=== PATIENT | female | born 1990 | race Caucasian/White ===

== ENCOUNTER 2017-02-14 01:17 | Inpatient (IN) | payer BC ==
[2017-02-14] MEDS ORDERED: Ondansetron INJ* 2 MG/ML VIAL IV ONE ×2 (01:43→05:30)
[2017-02-14] MEDS ORDERED: Ketorolac INJ* 30 MG/ML 1 ML VIAL IV ONE (01:43)
[2017-02-14] MEDS ORDERED: Morphine INJ* 4 MG/ML 1 ML SYRINGE IV ONE ×4 (01:43→09:13)
[2017-02-14 02:32] LABS: Hematocrit 41 % (35-47); Hemoglobin 13.4 g/dl (12.0-16.0); Mean Corpuscular HGB Conc 33 g/dl (31-36); Mean Corpuscular Hemoglobin 29 pg (27-31); Mean Corpuscular Volume 87 fL (80-97); Mean Platelet Volume 9 um3 (7.4-10.4); Red Blood Count 4.66 10^6/ul (4.0-5.4); Red Cell Distribution Width 13 % (10.5-15); White Blood Count 18.8 10^3/ul (3.5-10.8)
[2017-02-14 02:37] LABS: Add Diff/Slide Review? Slide Review Added; Comments Flag Yes
[2017-02-14] MEDS ORDERED: NS 0.9% 1000 ML* 3,000 ML IV ONE (02:39)
[2017-02-14 02:42] LABS: ALT 12 U/L (7-52); AST 17 U/L (13-39); Albumin 4.4 g/dL (3.2-5.2); Alkaline Phosphatase 44 U/L (34-104); Anion Gap 12 mmol/L (2-11); BUN/Creatinine Ratio 19.3 (8-20); Blood Urea Nitrogen 16 mg/dL (6-24); C Reactive Protein 3.99 mg/L (< 5.00); CO2 Carbon Dioxide 20 mmol/L (22-32); Calcium 9.6 mg/dL (8.6-10.3); Chloride 103 mmol/L (101-111); EGFR African American 106.1 (>60); EGFR Non-African American 82.5 (>60); Globulin 2.9 g/dL (2-4); Glucose 111 mg/dL (70-100); Lipase 12 U/L (11.0-82.0); Potassium 3.1 mmol/L (3.5-5.0); Sodium 135 mmol/L (133-145); Total Protein 7.3 g/dL (6.4-8.9)
[2017-02-14] MEDS ORDERED: Tamsulosin CAP* 0.4 MG PO ONE (03:10)
[2017-02-14] MEDS ORDERED: HYDROmorphone* 1 MG/ML 1 ML SYR IV ONE (05:25)
[2017-02-14 05:30] LABS: Urine Bacteria 1+ (Absent); Urine Bilirubin Negative (Negative); Urine Glucose Negative (Negative); Urine Nitrite Negative (Negative)
[2017-02-14] MEDS ORDERED: Ondansetron INJ* 2 MG/ML VIAL ONE ×2 (05:32→11:56)
[2017-02-14] MEDS ORDERED: NS 0.9% 1000 ML* 1,000 ML IV SCH (06:15)
[2017-02-14] MEDS ORDERED: cefTRIAXone(*) 1 GM in NS 0.9% 50 ML* 50 ML IVPB ONE (06:24)
--- NOTE | 2017-02-14 06:27 | ED ---
Kesha Ortgea Alok, scribed for Asif Olguin MD on 02/14/17 at 0148 . Abdominal Pain/Female - HPI Summary HPI Summary: 26 y/o female presents to the ED with abd pain in her right flank radiating to her RLQ. This pain began at 2345 and is accompanied by N/V. Pt is on an IUD and denies any chance of . Pt states NKDA. - History of Current Complaint Chief Complaint: EDAbdPain Stated Complaint: ABD/BACK PAIN/N/V Time Seen by Provider: 02/14/17 01:27 Hx Obtained From: Patient ?: No Onset/Duration: Gradual Onset, Lasting Hours, Still Present Timing: Constant Severity Initially: Moderate Severity Currently: Moderate Pain Intensity: 8 Pain Scale Used: 0-10 Numeric Location: Flank - Right side Radiates: Yes Radiates to: RLQ Aggravating Factor(s): Nothing Alleviating Factor(s): Nothing Associated Signs and Symptoms: Positive: Nausea, Vomiting Allergies/Adverse Reactions: Allergies Allergy/AdvReac Type Severity Reaction Status Date / Time No Known Allergies Allergy Verified 02/14/17 01:23 PMH/Surg Hx/FS Hx/Imm Hx Cardiovascular History: Reports: Hx Supraventricular Ventricular Tachycardia Infectious Disease History: No Infectious Disease History: Denies: Traveled Outside the [place] in Last 30 Days - Family History Known Family History: Positive: Other - No - Kidney Stones - Social History Occupation: Employed Full-time Lives: With Family - Friend Male Review of Systems Negative: Fever Positive: Abdominal Pain - RLQ, Vomiting, Nausea Positive: flank pain - Right All Other Systems Reviewed And Are Negative: Yes Physical Exam Triage Information Reviewed: Yes Vital Signs On Initial Exam: Initial Vitals Temp Pulse Resp BP Pulse Ox 98.3 F 79 15 143/78 100 02/14/17 01:18 02/14/17 01:18 02/14/17 01:18 02/14/17 01:18 02/14/17 01:18 Vital Signs Reviewed: Yes Appearance: Positive: Well-Appearing, Pain Distress - Moderate Skin: Positive: Warm, Skin Color Reflects Adequate Perfusion, Dry Head/Face: Positive: Normal Head/Face Inspection Eyes: Positive: EOMI, ANNE ENT: Positive: Normal ENT inspection Neck: Positive: Supple, Nontender Respiratory/Lung Sounds: Positive: Clear to Auscultation, Breath Sounds Present Cardiovascular: Positive: RRR Abdomen Description: Positive: Soft, Other: - Right Side Abdominal Tenderness Bowel Sounds: Positive: Present Musculoskeletal: Positive: Normal, Strength/ROM Intact Neurological: Positive: Normal, Sensory/Motor Intact, Alert, Oriented to Person Place, Time Psychiatric: Positive: Affect/Mood Appropriate Diagnostics - Vital Signs Vital Signs Temp Pulse Resp BP Pulse Ox 02/14/17 01:18 98.3 F 79 15 143/78 100 - Laboratory Lab Results: Lab Results 02/14/17 02/14/17 02/14/17 Range/Units 02:05 02:05 02:05 WBC 18.8 H (3.5-10.8) 10^3/ul RBC 4.66 (4.0-5.4) 10^6/ul Hgb 13.4 (12.0-16.0) g/dl Hct 41 (35-47) % MCV 87 (80-97) fL MCH 29 (27-31) pg MCHC 33 (31-36) g/dl RDW 13 (10.5-15) % Plt Count 204 (150-450) 10^3/ul MPV 9 (7.4-10.4) um3 Neut % (Auto) 85.9 H (38-83) % Lymph % (Auto) 6.8 L (25-47) % [place] % (Auto) 5.7 (1-9) % Eos % (Auto) 0.7 (0-6) % Baso % (Auto) 0.9 (0-2) % Absolute Neuts (auto) 16.1 H (1.5-7.7) 10^3/ul Absolute Lymphs (auto) 1.3 (1.0-4.8) 10^3/ul Absolute Monos (auto) 1.1 H (0-0.8) 10^3/ul Absolute Eos (auto) 0.1 (0-0.6) 10^3/ul Absolute Basos (auto) 0.2 (0-0.2) 10^3/ul Absolute Nucleated RBC 0 10^3/ul Nucleated RBC % 0 INR (Anticoag Therapy) 0.96 (0.89-1.11) APTT 29.7 (26.0-36.3) seconds Sodium 135 (133-145) mmol/L Potassium 3.1 L (3.5-5.0) mmol/L Chloride 103 (101-111) mmol/L Carbon Dioxide 20 L (22-32) mmol/L Anion Gap 12 H (2-11) mmol/L BUN 16 (6-24) mg/dL Creatinine 0.83 (0.51-0.95) mg/dL Est GFR ( Amer) 106.1 (>60) Est GFR (Non-Af Amer) 82.5 (>60) BUN/Creatinine Ratio 19.3 (8-20) Glucose 111 H (70-100) mg/dL Lactic Acid (0.5-2.0) mmol/L Calcium 9.6 (8.6-10.3) mg/dL Total Bilirubin 0.50 (0.2-1.0) mg/dL AST 17 (13-39) U/L ALT 12 (7-52) U/L Alkaline Phosphatase 44 (34-104) U/L C-Reactive Protein 3.99 (< 5.00) mg/L Total Protein 7.3 (6.4-8.9) g/dL Albumin 4.4 (3.2-5.2) g/dL Globulin 2.9 (2-4) g/dL Albumin/Globulin Ratio 1.5 (1-3) Lipase 12 (11.0-82.0) U/L Beta HCG, Quant < 0.60 mIU/mL Urine Color Urine Appearance Urine pH (5-9) Ur Specific [place] (1.010-1.030) Urine Protein (Negative) Urine Ketones (Negative) Urine Blood (Negative) Urine Nitrate (Negative) Urine Bilirubin (Negative) Urine Urobilinogen (Negative) Ur Leukocyte Esterase (Negative) Urine WBC (Auto) (Absent) Urine RBC (Auto) (Absent) Ur Squamous Epith Cells (Absent) Urine Bacteria (Absent) Urine Glucose (Negative) 02/14/17 02/14/17 Range/Units 02:05 04:44 WBC (3.5-10.8) 10^3/ul RBC (4.0-5.4) 10^6/ul Hgb (12.0-16.0) g/dl Hct (35-47) % MCV (80-97) fL MCH (27-31) pg MCHC (31-36) g/dl RDW (10.5-15) % Plt Count (150-450) 10^3/ul MPV (7.4-10.4) um3 Neut % (Auto) (38-83) % Lymph % (Auto) (25-47) % [place] % (Auto) (1-9) % Eos % (Auto) (0-6) % Baso % (Auto) (0-2) % Absolute Neuts (auto) (1.5-7.7) 10^3/ul Absolute Lymphs (auto) (1.0-4.8) 10^3/ul Absolute Monos (auto) (0-0.8) 10^3/ul Absolute Eos (auto) (0-0.6) 10^3/ul Absolute Basos (auto) (0-0.2) 10^3/ul Absolute Nucleated RBC 10^3/ul Nucleated RBC % INR (Anticoag Therapy) (0.89-1.11) APTT (26.0-36.3) seconds Sodium (133-145) mmol/L Potassium (3.5-5.0) mmol/L Chloride (101-111) mmol/L Carbon Dioxide (22-32) mmol/L Anion Gap (2-11) mmol/L BUN (6-24) mg/dL Creatinine (0.51-0.95) mg/dL Est GFR ( Amer) (>60) Est GFR (Non-Af Amer) (>60) BUN/Creatinine Ratio (8-20) Glucose (70-100) mg/dL Lactic Acid 1.9 (0.5-2.0) mmol/L Calcium (8.6-10.3) mg/dL Total Bilirubin (0.2-1.0) mg/dL AST (13-39) U/L ALT (7-52) U/L Alkaline Phosphatase (34-104) U/L C-Reactive Protein (< 5.00) mg/L Total Protein (6.4-8.9) g/dL Albumin (3.2-5.2) g/dL Globulin (2-4) g/dL Albumin/Globulin Ratio (1-3) Lipase (11.0-82.0) U/L Beta HCG, Quant mIU/mL Urine Color Yellow Urine Appearance Cloudy Urine pH 5.0 (5-9) Ur Specific [place] 1.030 (1.010-1.030) Urine Protein Negative (Negative) Urine Ketones 2+ H (Negative) Urine Blood 1+ H (Negative) Urine Nitrate Negative (Negative) Urine Bilirubin Negative (Negative) Urine Urobilinogen Negative (Negative) Ur Leukocyte Esterase 2+ H (Negative) Urine WBC (Auto) 3+(>20/hpf) H (Absent) Urine RBC (Auto) 3+(>10/hpf) H (Absent) Ur Squamous Epith Cells Present H (Absent) Urine Bacteria 1+ H (Absent) Urine Glucose Negative (Negative) Result Diagrams: 02/14/17 02:05 02/14/17 02:05 Lab Statement: Any lab studies that have been ordered have been reviewed, and results considered in the medical decision making process. - CT Abd/Pel CT CT Interpretation: Positive (See Comments) - IMPRESSION: MILD RIGHT HYDRONEPHROISI SECONDARY TO A 6 MM PROXIMAL TO MID RIGHT URETERAL STONE. CT Interpretation Completed By: Radiologist Re-Evaluation - Re-Evaluation First Eval Re-Evaluation Time: 03:06 Second Eval Re-Evaluation Time: 05:23 Abdominal Pain Fem Course/Dx - Course Course Of Treatment: PAIN RETURNS AFTER 3 IV DOSES OF THE PAIN MEDICATIONS. DISCUSSED WITH DR PETERSON. HE WILL SEE THE PATIENT IN THE ED. ADMIT STABLE. - Diagnoses Provider Diagnoses: Kidney stone - Provider Notifications Discussed Care Of Patient With: Dr. Peterson (Urology) @ 0914 Discharge - Discharge Plan Condition: Stable Disposition: ADMITTED TO [facility] Referrals: Omar Contreras MD [Primary Care Provider] - The documentation as recorded by the Kesha may Alok accurately reflects the service I personally performed and the decisions made by , Asif Olguin MD.
--- NOTE | 2017-02-14 07:52 | RAD ---
INDICATION: Right flank abdominal pain. COMPARISON: There are no prior studies available for comparison. TECHNIQUE: A CT scan of the abdomen and pelvis was performed without intravenous or oral contrast. Contiguous axial sections were obtained from the lung bases through the symphysis pubis. Images were reconstructed in the coronal and sagittal planes. FINDINGS: The lung bases are clear. No pleural effusion is present. The liver and spleen are within normal limits in size without significant focal abnormality on this noncontrast study. No calcified gallstones are seen. The pancreas appears to be within normal limits in size. The adrenal glands appear within normal limits. There is mild enlargement of the right kidney with mild perinephric stranding. There is dilatation of the renal calyces and pelvis to the level of a 3 x 6 mm calculus which is causing [id number] hydronephrosis. No renal or bladder calculi are seen. The aorta is normal in caliber without significant calcific plaque. No significant enlarged retroperitoneal lymph nodes are seen. The stomach, small and large bowel appear nondistended. The appendix is within normal limits. There is a moderate amount of retained stool. There is no evidence for diverticulitis or colitis. The uterus is anteverted and normal in size. There is a T-shaped IUD present. There is a trace amount of free intraperitoneal fluid in the cul-de-sac. No free intraperitoneal air is seen. No significant focal osseous abnormality is seen. IMPRESSION: MILD TO MODERATE RIGHT HYDRONEPHROSIS SECONDARY TO A 3 X 6 MM CALCULUS IN THE PROXIMAL RIGHT URETER.
[2017-02-14 09:03] LABS: Urine Bacteria Absent (Absent); Urine Bilirubin Negative (Negative); Urine Glucose Negative (Negative); Urine Nitrite Negative (Negative)
[2017-02-14] MEDS ORDERED: Morphine INJ* 4 MG/ML 1 ML SYRINGE ONE (09:05)
[2017-02-14] MEDS ORDERED: Acetaminophen TAB* 325 MG ONE (09:06)
[2017-02-14] MEDS ORDERED: Acetaminophen TAB* 325 MG PO ONE (09:06)
[2017-02-14] MEDS ORDERED: Midazolam* 1 MG/ML 5 ML VIAL (5 MG) ONE (11:24)
[2017-02-14] MEDS ORDERED: fentaNYL* 50 MCG/ML 2 ML VIAL (100 MCG VIAL) ONE (11:24)
[2017-02-14] MEDS ORDERED: Lidocaine 2% PF * 5 ML VIAL ONE (11:56)
[2017-02-14] MEDS ORDERED: Propofol* 10 MG/ML 20 ML BTL IV PUSH ONE (11:56)
[2017-02-14] MEDS ORDERED: DiMENhydriNATE IV* 50 MG/ML VIAL ONE (11:56)
[2017-02-14] MEDS ORDERED: Dexamethasone IV* 4 MG/ML 1 ML (4 MG) ONE (11:56)
--- NOTE | 2017-02-14 12:27 | RAD ---
INDICATION: Right retrograde examination with stent insertion COMPARISON: None FINDINGS: 9 seconds of fluoroscopy were provided for the urology department. Fluoroscopic spot imaging of the abdomen were obtained for operative control and show placement of a right ureteral stent in expected position. Incidental note is made of an IUD . CPT II Codes: 6045F (fluoro time doc)
[2017-02-14] MEDS ORDERED: DiMENhydriNATE IV* 50 MG/ML VIAL IV PUSH PRN (12:51)
[2017-02-14] MEDS ORDERED: HYDROmorphone* 1 MG/ML 1 ML SYR IV PRN (12:51)
[2017-02-14] MEDS ORDERED: Acetaminophen TAB* 325 MG PO PRN ×2 (12:51→15:06)
[2017-02-14] MEDS ORDERED: oxyCODONE/Acetamin 5/325 MG* TAB ONE (13:43)
[2017-02-14] MEDS: oxyCODONE/Acetamin 5/325 MG* TAB PO PRN (13:45)
[2017-02-14] MEDS: KCL 10 MEQ/50 ML IVPREMIX* 10 MEQ/50 ML BAG IV SCH ×2 (16:04→18:17)
--- NOTE | 2017-02-14 17:13 | HP ---
HOSPITAL MEDICINE AND PHYSICAL: DATE OF ADMISSION: 02/14/17 PRIMARY CARE PHYSICIAN: Dr. Contreras. ATTENDING PHYSICIAN: Adri Machado MD *(dictation provided by Joan Ibarra NP) CHIEF COMPLAINT: Right flank pain. HISTORY OF PRESENT ILLNESS: Ms. Rojas is a 26-year-old female with no past medical history who presented to the ER in the supervisor general hours of 02/14/17 with concern for right flank pain. Ms. Rojas states that she was in her normal state of health last night when she went to bed. In the middle of the night she had the sudden onset of right low back pain associated with nausea and vomiting. She had no fever. She initially thought that perhaps she had a musculoskeletal injury, but did not feel better after getting up and stretching and actually continued to feel worse. She, therefore, presented to the emergency room. She denies any other symptoms recently including cough, chest pain, shortness of breath. In the emergency room, Ms. Rojas had a white blood cell count elevated to 18.8. She had mild hypokalemia, potassium 3.1. Her urine show 2+ leuk esterase with 1+ bacteria. She went on to have a CT of abdomen and pelvis, which confirmed a right- sided calculus in the ureter measuring 3 x 6 mm causing mild- to-moderate right hydronephrosis. Ms. Rojas was taken to the OR by Dr. Kim for stent placement. Per the report verbally, Ms. Rojas had significantly cloudy urine with pus. She has had a fever up to 105 since presenting to the hospital, but she is now afebrile. PAST MEDICAL HISTORY: None. MEDICATIONS: None. ALLERGIES: None. FAMILY HISTORY: The patient reports that her mother is alive and has hyperthyroidism. Her paternal grandfather had colon cancer and has . Paternal grandmother had COPD and has . Her maternal grandmother is alive, but has had a history of heart attack. She does not know about her maternal grandfather. SOCIAL HISTORY: The patient denies any alcohol, tobacco, or drug use. She states that her healthcare proxy will be her sister, Merlene. REVIEW OF SYSTEMS: A 14-point review of systems was completed with Ms. Rojas and all those not mentioned above were negative. PHYSICAL EXAMINATION GENERAL: Ms. Rojas is sitting up in the PACU. She is in no acute distress. VITAL SIGNS: Currently temperature 97.8, again temperature was as high as 105.2. Heart rate 108, respiratory rate 20, O2 saturation 94% on 2 L nasal cannula, blood pressure 103/56. LUNGS: Clear to auscultation bilaterally with no accessory muscle use and good aeration. HEART: S1 and S2. No murmur, rub, or gallop. Regular. ABDOMEN: Soft and nontender with bowel sounds positive x4. EXTREMITIES: No cyanosis or edema. NEURO: She is alert and oriented x3. She moves all extremities equally. There is no facial asymmetry or focal weakness. Extraocular movements are intact. SKIN: Intact. DIAGNOSTIC STUDIES/LAB DATA: WBC 18.8, hemoglobin 13.4, hematocrit 41, platelet count 204. INR is 0.96. Sodium 135, potassium 3.1, chloride 103, serum bicarbonate 20, BUN 16, creatinine 0.83, glucose 111. Lactic acid 1.9, repeat check after her stent placement shows lactic acid of 1.5. Her beta-hCG is less than 0.60. CRP is 3.99. Again, urine showed 2+ leuk esterase and 1+ bacteria. Abdominal pelvis CT was as per above. ASSESSMENT AND PLAN: Ms. Rojas is a 26-year-old female with no significant past medical history. She had sudden onset of pain, nausea, vomiting, and fever in the middle of the night and was found to have a right calculus with a [id number]-vw-lfnyroyp hydronephrosis. She had severe fever and leukocytosis. She was taken to the OR by Dr. Kim where a stent was placed. Plans are for observation in the hospital overnight for the followin. Nephrolithiasis with hydronephrosis and concern for early sepsis: The patient's temperature is now down after the procedure. Her lactic acid is normal. She is mildly tachycardic still. Plans are IV fluids overnight and antibiotics. Dr. Kim has recommended ceftriaxone. Blood and urine cultures have been obtained. 2. DVT prophylaxis: Early mobility. 3. Disposition: To surgical floor. TIME SPENT: Approximately 60 minutes were spent on the admission of this patient; more than half time spent with the patient at the bedside reviewing the events leading up to this hospitalization, performing the physical examination, and reviewing my plan of care. JOAN IBARRA NP CC: Dr. Contreras* [id number]/CPS #: [id number] MTDD
--- NOTE | 2017-02-14 17:39 | OP ---
CC: Dr. Contreras OPERATIVE REPORT: DATE OF OPERATION: 02/14/17 DATE OF : 88 SURGEON: Austin Kim MD ANESTHESIOLOGIST: Nelly Rizvi MD ANESTHESIA: General. PRE-OP DIAGNOSES: 1. Proximal right ureteral calculus. 2. Acute right pyelonephritis, due to above. POST-OP DIAGNOSES: 1. Proximal right ureteral calculus. 2. Acute right pyelonephritis, due to above. OPERATIVE PROCEDURE: 1. Cystoscopy. 2. Right retrograde pyelography and placement of right ureteral stent (6-Lao ). INDICATION FOR PROCEDURE: Ms. Rojas is a 26-year-old white female who presented to the emergency room early this morning with symptoms of right renal colic. She did not have any fever, chills, or voiding symptoms, and no symptoms of urinary tract infection. Noncontrast CT of the abdomen and pelvis showed a 6 mm calculus in the proximal right ureter associated with mild degree of hydronephrosis. Her white count was elevated at 18,000 and her urinalysis was positive for infection. She was given 1 g Rocephin in the ED, and scheduled for a right ureteral stent placement today. As she was being prepared for the procedure, she developed a fever of 40 degrees centigrade. The patient was given IV gentamicin and taken to the OR on an urgent basis for stent placement. PATHOLOGY: At cystoscopy, the bladder mucosa looked normal. There were no suspicious bladder lesions seen. There were no changes to suggest cystitis. At fluoroscopy, a definite calculus could not be visualized in the area of the proximal right ureter. Following placement of the guidewire inside the right renal pelvis there was a gush of concentrated and cloudy looking urine. Following drainage of the right collecting system retrograde pyelography showed no dilatation of the collecting system. DESCRIPTION OF PROCEDURE: After successful general anesthesia, the patient was placed in the lithotomy position and was prepped and draped for cystoscopy. Cystoscopy was performed. The bladder was carefully inspected and the above findings were noted. A flexible tip guidewire was then introduced into the right orifice and positioned in the area of the renal pelvis. There was no hold up to the introduction of the wire. Purulent urine and then concentrated cloudy urine drained from her kidney. A size 5-Lao open-ended catheter was then fed on top of the guidewire and positioned in the area of the renal pelvis. The collecting system was drained. When the hydronephrotic drip slowed down, 2 cc of contrast was then injected delineating the collecting system. A size 6-Lao stent was then placed with the proximal end coiling in renal pelvis on the collecting system and the distal end coiling inside the bladder. There was good drainage of contrast from the kidney and no extravasation. The patient tolerated the procedure well and left the operating room in good condition. The plan is to treat the patient for pyelonephritis. Will obtain a KUB at a later date and decide on the definitive treatment of the stone. [id number]/CPS #: [id number] [facility]
[2017-02-14] MEDS: cefTRIAXone VIAL(*) 1,000 MG in NS 0.9% 50 ML* 50 ML IVPB SCH (20:28)
[2017-02-14] MEDS ORDERED: Ondansetron INJ* 2 MG/ML VIAL IV PRN (20:50)
[2017-02-15] MEDS: oxyCODONE/Acetamin 5/325 MG* TAB PO PRN ×3 (06:19→22:48)
[2017-02-15 06:45] LABS: Hematocrit 33 % (35-47); Hemoglobin 10.9 g/dl (12.0-16.0); Mean Corpuscular HGB Conc 33 g/dl (31-36); Mean Corpuscular Hemoglobin 29 pg (27-31); Mean Corpuscular Volume 88 fL (80-97); Mean Platelet Volume 10 um3 (7.4-10.4); Red Blood Count 3.79 10^6/ul (4.0-5.4); Red Cell Distribution Width 13 % (10.5-15); White Blood Count 31.6 10^3/ul (3.5-10.8)
[2017-02-15 06:47] LABS: Comments Flag Yes
[2017-02-15 06:48] LABS: Add Diff/Slide Review? Slide Review Added
[2017-02-15 07:02] LABS: BUN/Creatinine Ratio 12.5 (8-20); Calcium 8.9 mg/dL (8.6-10.3); EGFR Non-African American 97.2 (>60); Potassium 3.6 mmol/L (3.5-5.0)
--- NOTE | 2017-02-15 07:34 | ED ---
Moraima Ortega Salem, scribed for Kimani Parker MD on 02/14/17 at 0953 . Progress - Progress Note Progress Note: Sign out from Dr. Olguin. Re-evaluated pt at 0948. Re-Evaluation - Re-Evaluation First Eval Re-Evaluation Time: 09:48 Change: Improved Comment: Pt is stable. Second Eval Re-Evaluation Time: 05:23 Course/Dx - Diagnoses Provider Diagnoses: Ureteral stone, Pyelonephritis - Provider Notifications Discussed Care Of Patient With: Discussed care with Dr. Kim @ 0477. He recommended speaking with the hospitalist for admission. Dr. Garcia ( hospitalist) @ 8257. Will be admitted after procedure. Discharge - Discharge Plan Condition: Stable Disposition: ADMITTED TO [facility] documentation as recorded by the Moraima may Salem accurately reflects the service I personally performed and the decisions made by Keith lozano Jerry, MD.
[2017-02-15] MEDS: cefTRIAXone VIAL(*) 1,000 MG in NS 0.9% 50 ML* 50 ML IVPB SCH ×2 (08:23→20:23)
--- NOTE | 2017-02-15 08:46 | RAD ---
INDICATION: Acute pyelonephritis status post placement. COMPARISON: Comparison is made with a prior CT of the abdomen and pelvis from February 14, 2017. TECHNIQUE: Frontal supine films of the abdomen were obtained. FINDINGS: The small bowel and colon appear nondistended. There is a double-J stent catheter present on the right side. There is a small calculus which projects over the region of the lower pole of the right kidney measuring 5 mm in size likely accounting for the previously noted ureteral calculus. IMPRESSION: STATUS POST STENT PLACEMENT RIGHT SIDE, RIGHT RENAL CALCULUS.
[2017-02-15] MEDS: Acetaminophen TAB* 325 MG PO PRN ×2 (09:16→15:15)
[2017-02-15] MEDS ORDERED: Piperac/Tazob 3.375 gm in NS* 3.375 GM/100 ML BAG IVPB SCH (11:00)
--- NOTE | 2017-02-15 13:47 | CONS ---
CONSULTATION REPORT: DATE OF CONSULTATION: 02/15/17 REQUESTING PHYSICIAN: Dr. Kim. CONSULTING SERVICE: Infectious Disease. REASON FOR CONSULTATION: E. coli bacteremia. IMPRESSION: 1. Escherichia coli in 4 out of 4 blood cultures bottles and urine culture in the setting of an obstructing right ureteral stone, status post stent placement on 02/14/17. 2. Escherichia coli sepsis, present on admission with tachycardia, hypertension , lightheadedness, leukocytosis. RECOMMENDATIONS: Continue ceftriaxone another 24 hours, awaiting sensitivity data and as long as there is an oral agent with good oral bioavailability, we will plan to change management facilitator oral antibiotics. We discussed continuing the duration of her antibiotic therapy through the time of stent removal. HISTORY OF PRESENT ILLNESS: This is a 26-year-old woman admitted with right flank pain and fever. She had been well until Saturday night, she had the sudden onset of severe right flank pain, vomiting, fever. She came to the ER. A CT scan showed the stone as above. Urinalysis showed ketones, blood, leukocyte esterase, white cells, red cells. She was taken to the OR the next morning with Dr. Kim with stent placement, blood cultures 4 out of 4 growing E. coli, the urine also growing E. coli, sensitivities pending. She has never had kidney stones before. Her pain today is improved. She is having mild dysuria and no fever today. Her appetite was back to normal. PAST MEDICAL HISTORY: None. MEDICATIONS: 1. Tylenol. 2. Lactated Ringers. 3. Zofran. 4. Ceftriaxone 1 g IV every 12 hours. ALLERGIES: No known drug allergies. FAMILY HISTORY: No recurrent infections. SOCIAL HISTORY: She lives in [place]. She is a senior laboratory technician. 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 No travel. REVIEW OF SYSTEMS: A full review of systems was negative except as noted above. PHYSICAL EXAMINATION: Vital Signs: Temperature 36, heart rate 80, respiratory rate 18, blood pressure 110/60, O2 sat is 94% on room air. General: She is awake, not in distress. Not diaphoretic. Neurologic: Oriented x3. Follows all commands. HEENT: There is no conjunctival hemorrhage. Oropharynx is without lesions. Neck is supple without nuchal rigidity. Lymph nodes: There is no cervical, supraclavicular, inguinal, axillary or epitrochlear lymphadenopathy. Heart has regular rate and rhythm without murmurs, rubs or gallops. Lungs are clear to auscultation bilaterally. Abdomen is soft, nontender, nondistended. There is no flank tenderness to palpation. Skin: There is no rash or splinter hemorrhages. Musculoskeletal: There is no spine tenderness to palpation. No joint synovitis. LABORATORY DATA: White blood cell count 31,000, up from 18,000; hemoglobin 10; platelets 148. Creatinine 0.7. Beta HCG is 0. Please see impressions and recommendations outlined above, which I have discussed with Dr. Kim. Thanks for asking me to see Ms. Rojas in consultation. [id number]/[facility] #: [id number] JESSICA
[2017-02-15] MEDS ORDERED: oxyCODONE/Acetamin 5/325 MG* TAB PO PRN (17:53)
--- NOTE | 2017-02-15 18:11 | PN ---
Subjective Date of Service: 02/15/17 Interval History: Ms. Rojas states that she is feeling relatively well today. She still has some mild intermittent discomfort on the right flank. She denies nausea or vomiting and is tolerating oral intake well. Objective Active Medications: Acetaminophen (Tylenol Tab*) 650 mg PO Q6H PRN Ceftriaxone Sodium 1,000 mg/ (Sodium Chloride) 50 mls @ 200 mls/hr IVPB Q12H DULCE Lactated Ringer's (Lactated Ringers 1000 Ml Bag*) 1,000 mls @ 150 mls/hr IV PER RATE DULCE Ondansetron HCl (Zofran Inj*) 4 mg IV Q6H PRN Oxycodone/Acetaminophen (Percocet 5/325 Tab*) 1 tab PO Q4H PRN Oxycodone/Acetaminophen (Percocet 5/325 Tab*) 2 tab PO Q4H PRN Vital Signs 02/15/17 02/15/17 11:56 15:49 Temperature 97.9 F 98.7 F Pulse Rate 88 85 Respiratory 18 16 Rate Blood Pressure 126/74 114/65 (mmHg) O2 Sat by Pulse 100 99 Oximetry Oxygen Devices in Use Now: None Appearance: Female sitting up in bed in NAD Respiratory: Symmetrical Chest Expansion and Respiratory Effort, Clear to Auscultation Cardiovascular: NL Sounds; No Murmurs; No JVD, No Edema Abdominal: NL Sounds; No Tenderness; No Distention Extremities: No Edema Skin: No Rash or Ulcers Neurological: Alert and Oriented x 3, NL Muscle Strength and Tone Nutrition: Taking PO's Result Diagrams: 02/15/17 06:00 02/15/17 06:00 Additional Lab and Data: Lab Results 02/14/17 02/14/17 02/14/17 Range/Units 02:05 02:05 02:05 WBC 18.8 H (3.5-10.8) 10^3/ul RBC 4.66 (4.0-5.4) 10^6/ul Hgb 13.4 (12.0-16.0) g/dl Hct 41 (35-47) % MCV 87 (80-97) fL MCH 29 (27-31) pg MCHC 33 (31-36) g/dl RDW 13 (10.5-15) % Plt Count 204 (150-450) 10^3/ul MPV 9 (7.4-10.4) um3 Neut % (Auto) 85.9 H (38-83) % Lymph % (Auto) 6.8 L (25-47) % [place] % (Auto) 5.7 (1-9) % Eos % (Auto) 0.7 (0-6) % Baso % (Auto) 0.9 (0-2) % Absolute Neuts (auto) 16.1 H (1.5-7.7) 10^3/ul Absolute Lymphs (auto) 1.3 (1.0-4.8) 10^3/ul Absolute Monos (auto) 1.1 H (0-0.8) 10^3/ul Absolute Eos (auto) 0.1 (0-0.6) 10^3/ul Absolute Basos (auto) 0.2 (0-0.2) 10^3/ul Absolute Nucleated RBC 0 10^3/ul Nucleated RBC % 0 INR (Anticoag Therapy) 0.96 (0.89-1.11) APTT 29.7 (26.0-36.3) seconds Sodium 135 (133-145) mmol/L Potassium 3.1 L (3.5-5.0) mmol/L Chloride 103 (101-111) mmol/L Carbon Dioxide 20 L (22-32) mmol/L Anion Gap 12 H (2-11) mmol/L BUN 16 (6-24) mg/dL Creatinine 0.83 (0.51-0.95) mg/dL Est GFR ( Amer) 106.1 (>60) Est GFR (Non-Af Amer) 82.5 (>60) BUN/Creatinine Ratio 19.3 (8-20) Glucose 111 H (70-100) mg/dL Lactic Acid (0.5-2.0) mmol/L Calcium 9.6 (8.6-10.3) mg/dL Total Bilirubin 0.50 (0.2-1.0) mg/dL AST 17 (13-39) U/L ALT 12 (7-52) U/L Alkaline Phosphatase 44 (34-104) U/L C-Reactive Protein 3.99 (< 5.00) mg/L Total Protein 7.3 (6.4-8.9) g/dL Albumin 4.4 (3.2-5.2) g/dL Globulin 2.9 (2-4) g/dL Albumin/Globulin Ratio 1.5 (1-3) Lipase 12 (11.0-82.0) U/L Beta HCG, Quant < 0.60 mIU/mL Urine Color Urine Appearance Urine pH (5-9) Ur Specific [place] (1.010-1.030) Urine Protein (Negative) Urine Ketones (Negative) Urine Blood (Negative) Urine Nitrate (Negative) Urine Bilirubin (Negative) Urine Urobilinogen (Negative) Ur Leukocyte Esterase (Negative) Urine WBC (Auto) (Absent) Urine RBC (Auto) (Absent) Ur Squamous Epith Cells (Absent) Urine Bacteria (Absent) Urine Glucose (Negative) 02/14/17 02/14/17 Range/Units 02:05 04:44 WBC (3.5-10.8) 10^3/ul RBC (4.0-5.4) 10^6/ul Hgb (12.0-16.0) g/dl Hct (35-47) % MCV (80-97) fL MCH (27-31) pg MCHC (31-36) g/dl RDW (10.5-15) % Plt Count (150-450) 10^3/ul MPV (7.4-10.4) um3 Neut % (Auto) (38-83) % Lymph % (Auto) (25-47) % [place] % (Auto) (1-9) % Eos % (Auto) (0-6) % Baso % (Auto) (0-2) % Absolute Neuts (auto) (1.5-7.7) 10^3/ul Absolute Lymphs (auto) (1.0-4.8) 10^3/ul Absolute Monos (auto) (0-0.8) 10^3/ul Absolute Eos (auto) (0-0.6) 10^3/ul Absolute Basos (auto) (0-0.2) 10^3/ul Absolute Nucleated RBC 10^3/ul Nucleated RBC % INR (Anticoag Therapy) (0.89-1.11) APTT (26.0-36.3) seconds Sodium (133-145) mmol/L Potassium (3.5-5.0) mmol/L Chloride (101-111) mmol/L Carbon Dioxide (22-32) mmol/L Anion Gap (2-11) mmol/L BUN (6-24) mg/dL Creatinine (0.51-0.95) mg/dL Est GFR ( Amer) (>60) Est GFR (Non-Af Amer) (>60) BUN/Creatinine Ratio (8-20) Glucose (70-100) mg/dL Lactic Acid 1.9 (0.5-2.0) mmol/L Calcium (8.6-10.3) mg/dL Total Bilirubin (0.2-1.0) mg/dL AST (13-39) U/L ALT (7-52) U/L Alkaline Phosphatase (34-104) U/L C-Reactive Protein (< 5.00) mg/L Total Protein (6.4-8.9) g/dL Albumin (3.2-5.2) g/dL Globulin (2-4) g/dL Albumin/Globulin Ratio (1-3) Lipase (11.0-82.0) U/L Beta HCG, Quant mIU/mL Urine Color Yellow Urine Appearance Cloudy Urine pH 5.0 (5-9) Ur Specific [place] 1.030 (1.010-1.030) Urine Protein Negative (Negative) Urine Ketones 2+ H (Negative) Urine Blood 1+ H (Negative) Urine Nitrate Negative (Negative) Urine Bilirubin Negative (Negative) Urine Urobilinogen Negative (Negative) Ur Leukocyte Esterase 2+ H (Negative) Urine WBC (Auto) 3+(>20/hpf) H (Absent) Urine RBC (Auto) 3+(>10/hpf) H (Absent) Ur Squamous Epith Cells Present H (Absent) Urine Bacteria 1+ H (Absent) Urine Glucose Negative (Negative) Assess/Plan/Problems-Billing Assessment: Ms. Rojas is a 26 yo female with no significant PMH who was admitted on 02/14 with nephrolithiasis and hydronephrosis now s/p stent to the right ureter with associated fever and gram negative bacteremia. - Patient Problems (1) Nephrolithiasis Comment: With hydronephrosis now s/p stent and gram negative bacteremia. Afebrile but WBC up to 31.6. Plan to continue ceftriaxone another 24 hours. Will transition to oral agents tomorrow if remains afebrile. Plan to continue antibiotics until stent removal. Status and Disposition: Inpatient with LOS > 2 days. Home when medically stable, anticipate discharge tomorrow.
[2017-02-15] MEDS ORDERED: HYDROmorphone* 1 MG/ML 1 ML SYR IV SLOW PU PRN ×2 (18:28→19:25)
[2017-02-15] MEDS ORDERED: HYDROmorphone* 1 MG/ML 1 ML SYR ONE (18:31)
--- NOTE | 2017-02-15 19:30 | PN ---
Progress Note - Progress Note Note: Spoke to Dr. Kim. Patient with significant right flank pain -10/10 in severity. No fever. Almost certainly stent pain. Add flomax. Encourage patient to void as often as possible. Add toradol. Increase Dilaudid to 1 mg IV q4. Reassurance given to patient. DC CT scan.
[2017-02-15] MEDS ORDERED: Ketorolac INJ* 30 MG/ML 1 ML VIAL ONE (19:31)
[2017-02-15] MEDS: Ketorolac INJ* 30 MG/ML 1 ML VIAL IV PUSH PRN (19:33)
[2017-02-15] MEDS ORDERED: Tamsulosin CAP* 0.4 MG PO SCH (21:00)
[2017-02-16] MEDS: oxyCODONE/Acetamin 5/325 MG* TAB PO PRN ×2 (05:15→12:47)
[2017-02-16] MEDS: cefTRIAXone VIAL(*) 1,000 MG in NS 0.9% 50 ML* 50 ML IVPB SCH (07:59)
[2017-02-16] MEDS: Ketorolac INJ* 30 MG/ML 1 ML VIAL IV PUSH PRN (08:50)
[2017-02-16 12:49] VITALS: BP 120/67
[2017-02-16 13:22] LABS: Hematocrit 35 % (35-47); Hemoglobin 11.6 g/dl (12.0-16.0); Mean Corpuscular HGB Conc 33 g/dl (31-36); Mean Corpuscular Hemoglobin 29 pg (27-31); Mean Corpuscular Volume 87 fL (80-97); Mean Platelet Volume 9 um3 (7.4-10.4); Red Blood Count 4.05 10^6/ul (4.0-5.4); Red Cell Distribution Width 13 % (10.5-15); White Blood Count 19.3 10^3/ul (3.5-10.8)
--- NOTE | 2017-02-16 13:40 | PN ---
Subjective Date of Service: 02/16/17 Interval History: Ms. Rojas states that she is feeling quite well this morning. She states her pain is well controlled on the current regimen. She denies other complaint including chest pain or SOB. Objective Active Medications: Acetaminophen (Tylenol Tab*) 650 mg PO Q6H PRN Hydromorphone HCl (Dilaudid Iv*) 1 mg IV SLOW PU Q4H PRN Ceftriaxone Sodium 1,000 mg/ (Sodium Chloride) 50 mls @ 200 mls/hr IVPB Q12H DULCE Lactated Ringer's (Lactated Ringers 1000 Ml Bag*) 1,000 mls @ 150 mls/hr IV PER RATE DULCE Ketorolac Tromethamine (Toradol Inj*) 30 mg IV PUSH Q6H PRN Ondansetron HCl (Zofran Inj*) 4 mg IV Q6H PRN Oxycodone/Acetaminophen (Percocet 5/325 Tab*) 1 tab PO Q4H PRN Oxycodone/Acetaminophen (Percocet 5/325 Tab*) 2 tab PO Q4H PRN Tamsulosin HCl (Flomax Cap*) 0.4 mg PO BEDTIME [facility] Vital Signs 02/15/17 02/15/17 02/15/17 15:49 18:24 18:33 Temperature 98.7 F Pulse Rate 85 Respiratory 16 16 16 Rate Blood Pressure 114/65 (mmHg) O2 Sat by Pulse 99 Oximetry 02/15/17 02/15/17 02/15/17 19:18 19:33 20:00 Temperature 98.7 F Pulse Rate 86 Respiratory 18 16 18 Rate Blood Pressure 122/78 (mmHg) O2 Sat by Pulse 97 Oximetry 02/15/17 02/15/17 02/15/17 20:13 20:24 22:48 Temperature 98.7 F Pulse Rate 90 Respiratory 16 18 18 Rate Blood Pressure 113/62 (mmHg) O2 Sat by Pulse 94 Oximetry 02/15/17 02/16/17 02/16/17 23:36 00:48 03:51 Temperature 98.4 F 98.1 F Pulse Rate 78 82 Respiratory 16 18 16 Rate Blood Pressure 108/51 113/72 (mmHg) O2 Sat by Pulse 92 96 Oximetry 02/16/17 02/16/17 02/16/17 05:15 07:15 07:16 Temperature 98.7 F Pulse Rate 93 Respiratory 18 18 16 Rate Blood Pressure 131/69 (mmHg) O2 Sat by Pulse 96 Oximetry 02/16/17 02/16/17 02/16/17 07:43 11:58 12:47 Temperature 98.2 F Pulse Rate 79 Respiratory 16 17 18 Rate Blood Pressure 120/67 (mmHg) O2 Sat by Pulse 94 Oximetry Oxygen Devices in Use Now: None Appearance: Female up ambulating in hallway in [facility] Respiratory: Symmetrical Chest Expansion and Respiratory Effort, Clear to Auscultation Cardiovascular: NL Sounds; No Murmurs; No JVD, No Edema Abdominal: NL Sounds; No Tenderness; No Distention Extremities: No Edema Skin: No Rash or Ulcers Neurological: Alert and Oriented x 3, NL Muscle Strength and Tone Result Diagrams: 02/16/17 13:15 02/15/17 06:00 Additional Lab and Data: Lab Results 02/14/17 02/14/17 02/14/17 Range/Units 02:05 02:05 02:05 WBC 18.8 H (3.5-10.8) 10^3/ul RBC 4.66 (4.0-5.4) 10^6/ul Hgb 13.4 (12.0-16.0) g/dl Hct 41 (35-47) % MCV 87 (80-97) fL MCH 29 (27-31) pg MCHC 33 (31-36) g/dl RDW 13 (10.5-15) % Plt Count 204 (150-450) 10^3/ul MPV 9 (7.4-10.4) um3 Neut % (Auto) 85.9 H (38-83) % Lymph % (Auto) 6.8 L (25-47) % [place] % (Auto) 5.7 (1-9) % Eos % (Auto) 0.7 (0-6) % Baso % (Auto) 0.9 (0-2) % Absolute Neuts (auto) 16.1 H (1.5-7.7) 10^3/ul Absolute Lymphs (auto) 1.3 (1.0-4.8) 10^3/ul Absolute Monos (auto) 1.1 H (0-0.8) 10^3/ul Absolute Eos (auto) 0.1 (0-0.6) 10^3/ul Absolute Basos (auto) 0.2 (0-0.2) 10^3/ul Absolute Nucleated RBC 0 10^3/ul Nucleated RBC % 0 INR (Anticoag Therapy) 0.96 (0.89-1.11) APTT 29.7 (26.0-36.3) seconds Sodium 135 (133-145) mmol/L Potassium 3.1 L (3.5-5.0) mmol/L Chloride 103 (101-111) mmol/L Carbon Dioxide 20 L (22-32) mmol/L Anion Gap 12 H (2-11) mmol/L BUN 16 (6-24) mg/dL Creatinine 0.83 (0.51-0.95) mg/dL Est GFR ( Amer) 106.1 (>60) Est GFR (Non-Af Amer) 82.5 (>60) BUN/Creatinine Ratio 19.3 (8-20) Glucose 111 H (70-100) mg/dL Lactic Acid (0.5-2.0) mmol/L Calcium 9.6 (8.6-10.3) mg/dL Total Bilirubin 0.50 (0.2-1.0) mg/dL AST 17 (13-39) U/L ALT 12 (7-52) U/L Alkaline Phosphatase 44 (34-104) U/L C-Reactive Protein 3.99 (< 5.00) mg/L Total Protein 7.3 (6.4-8.9) g/dL Albumin 4.4 (3.2-5.2) g/dL Globulin 2.9 (2-4) g/dL Albumin/Globulin Ratio 1.5 (1-3) Lipase 12 (11.0-82.0) U/L Beta HCG, Quant < 0.60 mIU/mL Urine Color Urine Appearance Urine pH (5-9) Ur Specific [place] (1.010-1.030) Urine Protein (Negative) Urine Ketones (Negative) Urine Blood (Negative) Urine Nitrate (Negative) Urine Bilirubin (Negative) Urine Urobilinogen (Negative) Ur Leukocyte Esterase (Negative) Urine WBC (Auto) (Absent) Urine RBC (Auto) (Absent) Ur Squamous Epith Cells (Absent) Urine Bacteria (Absent) Urine Glucose (Negative) 02/14/17 02/14/17 Range/Units 02:05 04:44 WBC (3.5-10.8) 10^3/ul RBC (4.0-5.4) 10^6/ul Hgb (12.0-16.0) g/dl Hct (35-47) % MCV (80-97) fL MCH (27-31) pg MCHC (31-36) g/dl RDW (10.5-15) % Plt Count (150-450) 10^3/ul MPV (7.4-10.4) um3 Neut % (Auto) (38-83) % Lymph % (Auto) (25-47) % [place] % (Auto) (1-9) % Eos % (Auto) (0-6) % Baso % (Auto) (0-2) % Absolute Neuts (auto) (1.5-7.7) 10^3/ul Absolute Lymphs (auto) (1.0-4.8) 10^3/ul Absolute Monos (auto) (0-0.8) 10^3/ul Absolute Eos (auto) (0-0.6) 10^3/ul Absolute Basos (auto) (0-0.2) 10^3/ul Absolute Nucleated RBC 10^3/ul Nucleated RBC % INR (Anticoag Therapy) (0.89-1.11) APTT (26.0-36.3) seconds Sodium (133-145) mmol/L Potassium (3.5-5.0) mmol/L Chloride (101-111) mmol/L Carbon Dioxide (22-32) mmol/L Anion Gap (2-11) mmol/L BUN (6-24) mg/dL Creatinine (0.51-0.95) mg/dL Est GFR ( Amer) (>60) Est GFR (Non-Af Amer) (>60) BUN/Creatinine Ratio (8-20) Glucose (70-100) mg/dL Lactic Acid 1.9 (0.5-2.0) mmol/L Calcium (8.6-10.3) mg/dL Total Bilirubin (0.2-1.0) mg/dL AST (13-39) U/L ALT (7-52) U/L Alkaline Phosphatase (34-104) U/L C-Reactive Protein (< 5.00) mg/L Total Protein (6.4-8.9) g/dL Albumin (3.2-5.2) g/dL Globulin (2-4) g/dL Albumin/Globulin Ratio (1-3) Lipase (11.0-82.0) U/L Beta HCG, Quant mIU/mL Urine Color Yellow Urine Appearance Cloudy Urine pH 5.0 (5-9) Ur Specific [place] 1.030 (1.010-1.030) Urine Protein Negative (Negative) Urine Ketones 2+ H (Negative) Urine Blood 1+ H (Negative) Urine Nitrate Negative (Negative) Urine Bilirubin Negative (Negative) Urine Urobilinogen Negative (Negative) Ur Leukocyte Esterase 2+ H (Negative) Urine WBC (Auto) 3+(>20/hpf) H (Absent) Urine RBC (Auto) 3+(>10/hpf) H (Absent) Ur Squamous Epith Cells Present H (Absent) Urine Bacteria 1+ H (Absent) Urine Glucose Negative (Negative) Assess/Plan/Problems-Billing Assessment: Ms. Rojas is a 26 yo female with no significant PMH who was admitted on 02/14 with nephrolithiasis and hydronephrosis now s/p stent to the right ureter with associated fever and gram negative bacteremia. - Patient Problems (1) Nephrolithiasis Comment: Remains afebrile. WBC down. With hydronephrosis now s/p stent and gram negative bacteremia. Appreciate support from urology and ID. Plan to discharge on cipro to continue until patient has her stent removed in approximately 10 days. Status and Disposition: Discharge.
--- NOTE | 2017-02-17 03:50 | DS ---
DISCHARGE SUMMARY: DATE OF ADMISSION: 02/14/17 DATE OF DISCHARGE: 02/16/17 PRIMARY CARE PHYSICIAN: Dr. Contreras. ATTENDING PHYSICIAN: DO Gera Babcock(dictation provided by Joan Ibarra NP) PRIMARY DIAGNOSIS: Escherichia coli bacteremia secondary to nephrolithiasis with hydronephrosis and pyelonephritis, now status post stent. SECONDARY DIAGNOSIS: None. MEDICATIONS AT THE TIME OF DISCHARGE: 1. Cipro 500 mg p.o. b.i.d. x10 to 14 days until removal of stent. 2. Flomax 0.4 mg p.o. daily. 3. Ondansetron orally dissolving tabs 0.4 mg sublingually q.6 hours p.r.n. nausea. 4. Oxycodone/acetaminophen 5/325 mg 1 to 2 tabs p.o. q.4 hours p.r.n. pain. HOSPITAL COURSE: Ms. Rojas is a 26-year-old female with no significant past medical history who presented to the hospital on 02/14/17 with concern for flank pain, nausea, and vomiting. Please see the dictated H and P from myself for complete details. In brief, the patient had an immediate abdomen and pelvis CT, which confirmed a [id number] right hydronephrosis secondary to a 3 x 6 mm calculus in the proximal right ureter. The patient was taken for cystoscopy and right retrograde pyelography with placement of right ureteral stent by Dr. Kim. Please see the dictated operative note from Dr. Kim for complete details. In brief, during that procedure, the patient had significant cloudy pus-filled urine, but the procedure was otherwise uneventful. I will note that on arrival, the patient's fever was at the T-max of 105.2. After the procedure, Ms. Rojas has remained afebrile. On arrival, her white blood count was 18.8. On postop day #1, she had white blood count of 31.6 and now it is back down to 19.3. Her vital signs are otherwise stable. She did have severe pain last evening and Dr. Kim was called. He indicated that this was expected course with her stent and that we should add Flomax and increase pain medication regimen. With the addition of these medications, the patient is feeling much better this morning. She has good control of her pain and is ambulating in the hallway without difficulty. She is also tolerating oral intake well. In addition to being seen by Dr. Kim, the patient was seen by Infection Disease provider, Dr. Vang. He states that the patient would be appropriate for discharge when she defervesced. The patient has been afebrile as I stated since admission, and she has a pansensitive E. coli found both in her urine and in her blood, which are amenable to treatment with ciprofloxacin. During the hospitalization, she had been on ceftriaxone. PLAN: Ms. Rojas is medically stable for discharge to home to continue ciprofloxacin. Dr. Vang has recommended that the patient continue the antibiotic until she has the stent removed. She will also have Flomax, Zofran, and oxycodone with acetaminophen for pain control. I have instructed her that she should return immediately to the emergency room should she have fever or chills. I have asked that she call Dr. Kim's office with uncontrolled pain or consider returning to the ED for that as well if she is not able to reach him quickly. DISPOSITION: To home. DIET: Regular. ACTIVITIES: As tolerated. FOLLOWUP PLANS: Please follow up with Dr. Kim. Please call for an appointment on Saturday for planned stent removal in approximately 10 days. TIME SPENT: Approximately 60 minutes were spent on the discharge of this patient, more than half of the time was spent with the patient at the bedside reviewing the events leading up to this hospitalization, performing the physical examination, and reviewing my plan of care. JOAN IBARRA NP CC: Dr. Contreras* [id number]/[facility]PS #: [id number] JESSICA
== END 2017-02-16 14:06 | disposition home or self-care (01) | DRG 720 ==
LOC: ED 01:17 → OR 10:52 → SSU 14:08 → OBSVTOIN 02-15 10:00
PROVIDERS: ADMIT Urology; ATTEND Hospitalist
PROC: 0T768DZ Dilation of Right Ureter with Intraluminal Device, Via Natural or Artificial Opening Endoscopic (ICD-10-PCS; 2017-02-14)
PROC: BT1DYZZ Fluoroscopy of Right Kidney, Ureter and Bladder using Other Contrast (ICD-10-PCS; principal; 2017-02-14 12:00)
DX: A41.51 Sepsis due to Escherichia coli [E. coli] (principal); N10 Acute pyelonephritis; N13.6 Pyonephrosis; B96.20 Unspecified Escherichia coli [E. coli] as the cause of diseases classified elsewhere; Z83.49 Family history of other endocrine, nutritional and metabolic diseases; Z80.0 Family history of malignant neoplasm of digestive organs; Z82.5 Family history of asthma and other chronic lower respiratory diseases; Z82.49 Family history of ischemic heart disease and other diseases of the circulatory system
CPT/HCPCS: 36415; 74000; 74176; 74420; 80048; 80053; 81003; 81015; 83605; 83690; 84702; 85025; 85610; 85730; 86140; 87040; 87077; 87086; 87186; 87205; A9270-GY; C1876; G0378; J0696; J1100; J1170; J1240; J1580; J1885; J2250; J2270; J2405; J2543; J2704; J3010; J3480

== ENCOUNTER → 2017-03-04 10:04 | Day surgery (SDC) | payer SELFPAY ==
--- NOTE | 2017-02-27 08:38 | HP ---
CC: Dr. Contreras HISTORY AND PHYSICAL: DATE OF PLANNED ADMISSION AND SURGERY: 03/04/17 HISTORY OF PRESENT ILLNESS: Ms. Rojas is a 26-year-old white female who is admitted with a righ t renal calculus, status post placement of the right ureteral stent for shockwave lithotripsy of the right renal calculus followed by cystoscopy and removal of the right ureteral stent. Ms. Rojas presented about 2-1/2 weeks prior to this admission to the emergency room with symptom s of right renal colic. She had a non-contrast CT of the abdomen and pelvis, which showed a 6-7 mm calculus in the proximal right ureter. Her urinalysis was positive for infection. Following IV ant ibiotics, the patient was taken to the operating room for placement of a right ureteral stent. Just before the procedure was started, she developed a high-grade fever associated with chills. There wa s no hypotension. She had urgent placement of a right ureteral stent. Postoperatively, she continue d to have fever; however, her pain improved. All her blood cultures as well as the urine culture gr ew a gates-sensitive E. coli. The patient was treated with IV antibiotics and when the blood cultures came back showing her sensit dieter organism and after her temperature went down, she was discharged home on Cipro for an additional 10 days. Before her discharge, a KUB was done showing the right ureteral stent in good position and the calcu brenda to be located adjacent to the proximal loop of the stent in the renal pelvis. The patient has done very well since the procedure was done. She is now admitted for definitive treatment of the stone with shockwave lithotripsy followed by rig ht stent removal. PAST MEDICAL HISTORY AND SYSTEM REVIEW: Otherwise completely negative. She is in excellent health. She denies any past history of renal diseases or calculi. She denies past history of urinary trac t infections. MEDICATIONS: The patient is on no chronic medications. ALLERGIES: She denies any allergies to medications. PHYSICAL EXAM: GENERAL: Pleasant healthy-looking white female. VITAL SIGNS: Blood pressure 120/70, pulse of 80. LUNGS: Clear. HEART: Regular and rhythmic. No murmurs. ABDOMEN: Soft. There is mild right CVA tenderness. IMPRESSION: History of right ureteral calculus associated with urosepsis, managed with a stent plac ement and full course of antibiotics with the resolution of her symptoms. PLAN: Plan is for shockwave lithotripsy of the right renal calculus followed by cystoscopy and bertha juan m of the right ureteral stent. I discussed the above plans with the patient. Some of the potential complications including hematur ia and postoperative renal colic were discussed. All her questions were answered. [id number]/[facility] #: [id number]
[~2017-03-04 10:04] MED LIST: Buffered Lidocaine 1% SYRIN* 3 ML/SYR SYRINGE INTRADERM ONE; Dexamethasone IV* 4 MG/ML 1 ML (4 MG) ONE; Famotidine IV* 10 MG/ML 2 ML (20 mg) IV ONE; Famotidine IV* 10 MG/ML 2 ML (20 mg) ONE; Furosemide IV* 10 MG/ML 2 ML VIAL (20 MG) ONE; Iohexol 180 (CONTRAST) 10 ML SDV IV ONE; KETAMINE HCL* 50 MG/ML 10 ML VIAL ONE; Ketorolac INJ* 30 MG/ML 1 ML VIAL ONE; Lidocaine 2% PF* 5 ML VIAL ONE; Metoclopramide TAB* 10 MG ONE; Metoclopramide TAB* 10 MG PO ONE; Midazolam* 1 MG/ML 2 ML VIAL (2 MG) ONE; Midazolam* 1 MG/ML 5 ML VIAL (5 MG) ONE; Ondansetron INJ* 2 MG/ML VIAL IV PRN; Ondansetron INJ* 2 MG/ML VIAL ONE; Phenylephrine IV* 40 MCG/ML 10 ML SYRINGE ONE; Propofol* 10 MG/ML 20 ML BTL IV PUSH ONE; cefTRIAXone(*) 2 GM ADDV.VIAL IVPB ONE; fentaNYL* 50 MCG/ML 2 ML VIAL (100 MCG VIAL) IV PRN; fentaNYL* 50 MCG/ML 2 ML VIAL (100 MCG VIAL) ONE; oxyCODONE/Acetamin 5/325 MG* TAB PO PRN
[2017-03-04 11:05] LABS: Manual Entry Verification AS; UR Preg Internal Control QC Line Present; UR Preg Kit Lot# 6030156
--- NOTE | 2017-03-04 11:07 | RAD ---
Indication: Shock wave lithotripsy. Single view of the abdomen demonstrates right ureteral stent in place. IUD is in place. IMPRESSION: Right ureteral stent is in place.
[2017-03-04 14:22] VITALS: BP 109/71
--- NOTE | 2017-03-05 08:16 | OP ---
OPERATIVE REPORT: DATE OF OPERATION: 03/04/17 DATE OF : 88 SURGEON: Austin Kim MD ANESTHESIOLOGIST: Dr. Fadi Sparrow. ANESTHESIA: General. PRE-OP DIAGNOSES: 1. Right renal calculus. 2. Status post placement of right ureteral stent. POST-OP DIAGNOSES: 1. Proximal right ureteral calculus. 2. Status post placement of right ureteral stent. OPERATIONS: 1. Cystoscopy. 2. Removal of right ureteral stent. 3. Right ureteroscopy and basketing of proximal right ureteral calculus. 4. Right retrograde pyelography. INDICATION FOR PROCEDURE: Ms. Rojas is a 26-year-old white female who was admitted 2-1/2 weeks ago with a 6 mm obstructing proximal right ureteral calculus associated with urosepsis. She had urgent placement of a right ureteral stent. She was febrile and her blood cultures were positive, growing E. coli. She was treated with IV and then oral antibiotics. Postoperative KUB showed the stent in good position and a 6 mm radio opaque calculus in the mid-to -lower pole calyx of the right kidney. The patient was admitted with the plans to perform shockwave lithotripsy followed by stent removal. PATHOLOGY: Preoperative KUB showed the ureteral stent in good position. The right renal calculus could not be visualized. At fluoroscopy on the operating room table, the calculus could be seen in the proximal right ureter about 2 cm distal to the level of the ureteropelvic junction. Upon right ureteroscopy, the stone was visualized at that level. The rest of the ureter looked normal. Retrograde pyelography showed no hydronephrosis. DESCRIPTION OF PROCEDURE: The patient was brought into the operating room and was placed in the supine position on the shockwave lithotripsy table. Initially she was given only intravenous sedation. Fluoroscopy was performed at various angles and the calculus was visualized in the proximal right ureter adjacent to the stent. With that finding, it was decided to proceed with the ureteroscopy. The patient was then placed under general anesthesia, and placed in the lithotomy position and prepped and draped for cystoscopy. Cystoscopy was performed. The right ureteral stent was removed over a guidewire and the guidewire was coiled in the right renal pelvis. A size 6.5 semi-rigid ureteroscope was then introduced inside the bladder. A flexible-tip basket was passed through the port of the ureteroscope and the flexible tip of the basket was introduced into the right ureter and was used as a guide to introduce the ureteroscope in an atraumatic way inside the right ureter. The ureteroscope was introduced without difficulty or trauma all the way into the proximal ureter where the calculus was identified. The basket was then deployed. The stone was engaged and was gently and atraumatically pulled out intact and sent for stone analysis. Retrograde pyelography was then performed showing good drainage of contrast from the proximal ureter. It was decided not to place a ureteral stent. The patient tolerated the procedure well and left the operating room in good condition. [id number]/[facility] #: [id number] MTDD
== END | disposition home or self-care (01) ==
LOC: OR 10:04
PROVIDERS: ATTEND Urology
DX: N20.1 Calculus of ureter (principal); I47.1 Supraventricular tachycardia
CPT/HCPCS: 74000; 81025; 82365; 88300; A9270-GY; J0696; J1100; J1885; J1940; J2250; J2405; J2704; J3010